=== PATIENT | female | born 1940 | race Native Hawaiian/Other Pacific Islander ===

== ENCOUNTER 2016-10-19 13:35 | Outpatient (CLI) | payer OTHER | END 2016-10-19 19:24 | disposition home or self-care (01) | LOC: MRI 13:35 | DX: M54.5 Low back pain (principal) ==

== ENCOUNTER 2017-06-14 13:13 | Outpatient (CLI) | payer OTHER | END 2017-06-14 20:42 | disposition home or self-care (01) | LOC: RAD 13:13 | DX: M25.562 Pain in left knee (principal) ==

== ENCOUNTER 2017-07-19 13:26 | Outpatient (CLI) | payer OTHER | END 2017-07-19 19:21 | disposition home or self-care (01) | LOC: RAD 13:26 | DX: M25.552 Pain in left hip (principal) ==

== ENCOUNTER 2017-12-31 10:05 | Outpatient (CLI) | payer OTHER | END 2017-12-31 19:45 | disposition home or self-care (01) | LOC: US 10:05 | DX: R60.0 Localized edema (principal) ==

== ENCOUNTER 2018-04-11 12:34 | Outpatient (CLI) | payer OTHER | END 2018-04-11 19:24 | disposition home or self-care (01) | LOC: RAD 12:34 | DX: M25.562 Pain in left knee (principal) ==

== ENCOUNTER 2018-06-13 14:34 | Outpatient (CLI) | payer OTHER | END 2018-06-13 20:53 | disposition home or self-care (01) | LOC: RAD 14:34 | DX: R60.0 Localized edema (principal) ==

== ENCOUNTER 2019-01-23 12:58 | Outpatient (CLI) | payer OTHER | END 2019-01-23 16:00 | disposition home or self-care (01) | LOC: RAD 12:58 | DX: M25.551 Pain in right hip (principal) ==

== ENCOUNTER 2021-05-09 10:16 | Outpatient (CLI) | payer OTHER ==
[2021-05-09 10:33] LABS: PLATELET COUNT 212 K/uL (152-353)
== END 2021-05-09 20:35 | disposition home or self-care (01) ==
LOC: LABW 10:16
PROVIDERS: ATTEND Specialist
DX: Z01.810 Encounter for preprocedural cardiovascular examination (principal); R93.1 Abnormal findings on diagnostic imaging of heart and coronary circulation; R94.39 Abnormal result of other cardiovascular function study
CPT/HCPCS: 36415; 80048; 85027

== ENCOUNTER 2021-06-09 13:36 | Outpatient (CLI) | payer OTHER | END 2021-06-09 18:54 | disposition home or self-care (01) | LOC: RAD 13:36 | PROVIDERS: ATTEND Physician Assistant | DX: M25.551 Pain in right hip (principal) ==

== ENCOUNTER 2021-07-22 14:51 | Outpatient (CLI) | payer OTHER ==
[2021-07-22 15:10] LABS: POTASSIUM 3.9 mmol/L (3.6-5.2)
== END 2021-07-22 19:03 | disposition home or self-care (01) ==
LOC: LABW 14:51
PROVIDERS: ATTEND Nurse Practitioner
DX: I10 Essential (primary) hypertension (principal); E78.2 Mixed hyperlipidemia
CPT/HCPCS: 36415; 80048

== ENCOUNTER 2022-01-12 12:39 | Outpatient (CLI) | payer OTHER | END 2022-01-12 19:00 | disposition home or self-care (01) | LOC: RAD 12:39 | PROVIDERS: ATTEND Physician Assistant | DX: M54.59 Other low back pain (principal) ==

== ENCOUNTER 2023-03-19 09:46 | Outpatient (CLI) | payer OTHER | END 2023-03-19 19:46 | disposition home or self-care (01) | LOC: RAD 09:46 | PROVIDERS: ATTEND Nurse Practitioner Family | DX: K13.0 Diseases of lips (principal); M19.041 Primary osteoarthritis, right hand; M19.042 Primary osteoarthritis, left hand; M51.36 Other intervertebral disc degeneration, lumbar region; M85.89 Other specified disorders of bone density and structure, multiple sites ==